=== PATIENT | female | born 1980 | race Caucasian/White ===

== ENCOUNTER 2016-10-09 15:31 | Emergency (ER) | payer MEDICAID ==
[~2016-10-09] VITALS: Ht 157.5 cm; Wt 68.0 kg
[~2016-10-09 15:31] MED LIST: ANAPROX DS550 M1 PO; ASPIRIN81 M1 PO; GLIPIZIDE5 M2 PO; LISINOPRIL20 MG PO; LOPID600 MG PO; METFORMIN HYDR500 MG PO; [UNRECOGNIZED DRUG - REMARK]
[2016-10-09 15:53] VITALS: BP 115/77
--- NOTE | 2016-10-09 18:49 | NUR ---
36 /F BIB FAMILY C/O EPIGASTRIC PAIN X TODAY. PT STATES N/V BUT DENIES DIARRHEA; SKIN IS PINK/WARM/DRY; AAOX4 WITH EVEN AND STEADY GAIT; LUNGS CLEAR BL; HR EVEN AND REGULAR; PT DENIES ANY FEVER, CP, SOB, OR COUGH AT THIS TIME; PATIENT STATES PAIN OF 10/10 AT THIS TIME; VSS; PATIENT POSITIONED FOR COMFORT; HOB ELEVATED; BEDRAILS UP X2; BED DOWN. ER MD MADE AWARE OF PT STATUS.
--- NOTE | 2016-10-09 19:15 | NUR ---
Pt report given to POLA SHAW. Transfer of care at this time.
--- NOTE | 2016-10-09 19:22 | NUR ---
Julien perdue in [facility] - 10/09/16 at [address] [place] evaluating patient at bedside.
[2016-10-09] MEDS ORDERED: ALUMINUM HYD/MAG/SIMETHICONE 30 ML UDC PO ONE (19:50)
[2016-10-09] MEDS ORDERED: LIDOCAINE VISCOUS 2% 20 ML UDC PO ONE (19:50)
[2016-10-09] MEDS ORDERED: BELLADONNA/PHENOBARBITAL 5 ML ORASYR PO ONE (19:50)
[2016-10-09] MEDS ORDERED: PANTOPRAZOLE 40 MG TABEC PO ONE (20:25)
[2016-10-09 20:52] VITALS: BP 115/77
--- NOTE | 2016-10-09 20:52 | NUR ---
Patient discharged with v/s stable. Written and verbal after care instructions given and explained. Patient alert, oriented and verbalized understanding of instructions. Ambulatory with steady gait. All questions addressed prior to discharge. ID band removed. Patient advised to follow up with PMD. Rx of OMEPRAZOLE AND MAALOX ADVANCED REGULAR STRENGTH given. Patient educated on indication of medication including possible reaction and side effects. Opportunity to ask questions provided and answered.
== END 2016-10-09 20:52 | disposition home or self-care (01) ==
LOC: MED 15:31
DX: K29.70 Gastritis, unspecified, without bleeding (principal); E11.9 Type 2 diabetes mellitus without complications; I10 Essential (primary) hypertension; Z79.82 Long term (current) use of aspirin

== ENCOUNTER 2018-01-12 23:35 | Emergency (ER) | payer MEDICAID ==
[~2018-01-12] VITALS: Ht 149.9 cm; Wt 70.5 kg
[~2018-01-12 23:35] MED LIST changes: -ANAPROX DS550 M1 PO; +ASPI81CT89 PO; -ASPIRIN81 M1 PO; +GEMF600T5 PO; +GLIP5TAB13 PO; -GLIPIZIDE5 M2 PO; +LISI-420 PO; -LISINOPRIL20 MG PO; -LOPID600 MG PO; +METF-335 PO; -METFORMIN HYDR500 MG PO; +[UNRECOGNIZED DRUG - CODE] PO; -[UNRECOGNIZED DRUG - REMARK]
[2018-01-12 23:44] VITALS: BP 157/91
--- NOTE | 2018-01-12 23:47 | NUR ---
PT.AMBULATED TO [facility]
[2018-01-13 01:42] LABS: APPEARANCE,URINE CLEAR (CLEAR); COLOR,URINE YELLOW (YELLOW)
[2018-01-13 01:43] LABS: BILIRUBIN,URINE NEGATIVE (NEGATIVE); BLOOD, URINE NEGATIVE (NEGATIVE); NITRITE, URINE NEGATIVE (NEGATIVE); UGLUCOSE NEGATIVE (NEGATIVE)
[2018-01-13 01:44] LABS: LEUKOCYTE ESTERASE ,URINE 1+ (NEGATIVE)
[2018-01-13 01:50] LABS: RBC,URINE 0-5 (RARE) /HPF (0-5)
[2018-01-13 01:51] LABS: WBC,URINE 0-5 (RARE) /HPF (0-5)
[2018-01-13 02:12] LABS: BASOPHILS # (AUTO) 0.2 K/uL (0.00-0.22); BASOPHILS % (AUTO) 2.2 % (0.0-2.0); EOSINOPHILS # (AUTO) 0.2 K/uL (0-0.4); EOSINOPHILS % (AUTO) 2.1 % (0.0-4.0); HEMATOCRIT 36.9 % (36-48); HEMOGLOBIN 10.8 g/dL (12.0-16.0); LYMPHOCYTES # (AUTO) 2.3 K/uL (2.5-16.5); LYMPHOCYTES % (AUTO) 29.3 % (20.5-51.1); MEAN CORPUSCULAR HEMOGLOBIN 26 pg (27-31); MEAN CORPUSCULAR HGB CONC 29 g/dL (33-37); MEAN CORPUSCULAR VOLUME 89.8 fL (80-94); MONOCYTES # (AUTO) 0.5 K/uL (0.8-1.0); NEUTROPHILS # (AUTO) 4.6 K/uL (1.8-7.7); NEUTROPHILS % (AUTO) 60.4 % (42.2-75.2); PLATELET COUNT (AUTO) 323 K/uL (140-450); RED BLOOD CELL COUNT(AUTO) 4.11 MIL/uL (4.20-5.40); RED CELL DISTRIBUTION WIDTH 13.6 % (11.6-13.7); WHITE BLOOD COUNT (AUTO) 7.8 K/uL (4.8-10.8)
--- NOTE | 2018-01-13 03:12 | NUR ---
PT.AMBULATED TO ER BED 9
--- NOTE | 2018-01-13 03:15 | NUR ---
PATIENT IS A 37 Y/O FEMALE WHO PRESENTS TO THE ED C/O ABD PAIN. PT STATES THAT SHE IS X15 AND HAS EPIGASTRIC PAIN. PT REPORTS 10/10 ACHING EPIGASTRIC PAIN THAT DOES NOT RADIATE. PT DENIES CP, SOB, REPORTS VOMITING DENIES NAUSEA/DIARRHEA. PT AAOX4, RR EVEN/UNLABORED. PT REPOSITIONED FOR COMFORT, BED IN LOWEST POSITION. ER MD DR. PETTIT NOTIFIED. WILL CONTINUE TO MONITOR.
[2018-01-13] MEDS ORDERED: ALUMINUM HYD/MAG/SIMETHICONE 30 ML UDC PO ONE (03:50)
[2018-01-13] MEDS ORDERED: DICYCLOMINE HCL LIQUID 10 MG/5 ML UDC PO ONE (03:50)
[2018-01-13] MEDS ORDERED: LIDOCAINE VISCOUS 2% 20 ML UDC PO ONE (03:50)
--- NOTE | 2018-01-13 04:15 | NUR ---
Julien perdue in [facility] - 01/13/18 at 0557 by MEDDCV PATIENT RETURN FROM .
[2018-01-13 04:36] LABS: ANION GAP 14.2 (8-16); CARBON DIOXIDE 24.5 mmol/L (21-32); POTASSIUM 3.7 mmol/L (3.5-5.1)
[2018-01-13 04:37] LABS: ALBUMIN 3.1 g/dL (3.4-5.0); CREATININE 0.6 mg/dL (0.6-1.3); TOTAL BILIRUBIN 0.1 mg/dL (0.0-1.0)
--- NOTE | 2018-01-13 04:58 | NUR ---
US AT BEDSIDE.
--- NOTE | 2018-01-13 05:15 | NUR ---
PATIENT RETURN FROM US.
--- NOTE | 2018-01-13 05:15 | NUR ---
Julien perdue in [facility] - 01/13/18 at 0557 by MEDDCV PATIENT RETURN FROM CT.
--- NOTE | 2018-01-13 06:00 | NUR ---
PATIENT RESTING AT THIS TIME. NO SIGNS OF DISTRESS. FAMILY AT BEDSIDE.
--- NOTE | 2018-01-13 07:00 | NUR ---
Pt report given to LUISITO SHAW. Transfer of care at this time.
[2018-01-13 07:30] VITALS: BP 136/89
--- NOTE | 2018-01-13 07:30 | NUR ---
Patient discharged with v/s stable. Written and verbal after care instructions given and explained. Patient alert, oriented and verbalized understanding of instructions. Ambulatory with steady gait. All questions addressed prior to discharge. ID band removed. Patient advised to follow up with PMD. Rx of ZANTAC 150MG given. Patient educated on indication of medication including possible reaction and side effects. Opportunity to ask questions provided and answered.
== END 2018-01-13 07:30 | disposition home or self-care (01) ==
LOC: MED 23:35
DX: O23.42 Unspecified infection of urinary tract in pregnancy, second trimester (principal); E11.9 Type 2 diabetes mellitus without complications; I10 Essential (primary) hypertension; Z3A.16 16 weeks gestation of pregnancy; Z79.899 Other long term (current) drug therapy; Z90.49 Acquired absence of other specified parts of digestive tract
CPT/HCPCS: 36415; 76805; 80053; 81001; 81025; 82150; 83690; 84702; 85025; 87086; 99285; Q0092